=== PATIENT | male | born 1940 | race Caucasian/White ===

== ENCOUNTER 2016-06-26 00:11 | Emergency (ER) | payer MEDICARE, OTHER ==
[~2016-06-26] VITALS: Ht 175.3 cm; Wt 90.9 kg
[2016-06-26 00:13] VITALS: BP 146/76; PULSE 77; RESP 22; O2SAT 93
--- NOTE | 2016-06-26 00:19 | ED.REPORT ---
HPI-Dyspnea / Wheezing Date of Service Jun 26, 2016 ED Provider: Geetha Sun MD 76 year old male with a history of COPD presents to the ER accompanied by family complaining of two days of shortness of breath, worsening today. He also reports shooting right side chest pain exacerbated by movement and deep breaths. Patient denies any mechanism of injury, radiation of pain, abnormal cough, diaphoresis, nausea, vomiting, swelling of the lower extremities, and any recent surgery/travel/immobilization. Symptoms have been treated with acetaminophen/codeine, and Combivent at home. Nursing Notes Stated Complaint: SHORT OF BREATH Chief Complaint: Respiratory Distress Nursing Notes Reviewed: Yes Allergies: Coded Allergies: No Known Allergies (Unverified , 06/26/16) Scheduled Azithromycin (Zithromax) 250 Mg Tablet 250 MG PO DAILY Prednisone (PredniSONE) 20 Mg Tablet 40 MG PO DAILY General Time Seen by MD: 00:17 Chief Complaint Shortness of breath Hx Obtained From: Patient Arrived By: Walk-in Sudden in Onset?: No Onset Occurred: 2 days ago Symptom Duration: Since onset Location: : Chest right Quality: Painful, Sharp, Stabbing Severity: Current: Moderate Severity: Maximum: Moderate Associated with: Denies: Cough, Nausea, Vomiting Pertinent Negative: Pt denies other symptoms Context Related History: Reports: COPD Past Medical History Past Medical History Reports: COPD, Denies: Coronary artery disease, Diabetes mellitus, Hypertension Smoking History Current Every Day Smoker Social History Other Social History: Good social support Ambulatory Status Independent Review of Systems Constitutional: Denies: Chills, Fever Respiratory: Reports: Shortness of breath, Denies: Non-productive cough Cardiovascular: Reports: Chest pain Musculoskeletal: Denies: Extremity pain, Extremity swelling, Neck pain Skin: Denies Diaphoresis Complete sys rev & neg: except as marked. GI: Denies: Nausea, Vomiting Physical Exam Initial Vital Signs Vital Signs (First) Date Time Temp Pulse Resp B/P Pulse Ox O2 Delivery O2 Flow Rate FiO2 06/26/16 00:13 37.2 77 22 146/76 93 Room Air Initial VS: Reviewed Head / Eyes: Atraumatic, Normocephalic, PERRL Abdomen / GI: Soft, Non-tender, No guarding, No rebound, No distention Extremities: Vascular intact, Neuro intact, No swelling, No tenderness Skin: Warm, Dry, No cyanosis Neurologic: Alert, Oriented, Nonfocal General/Constitutional: Awake, Alert, Well developed, Well nourished Neck: Atraumatic, Supple, No meningismus, Full range of motion, No swelling, Non-tender, No masses Diminished Breath Sounds: Positive: Decreased bilateral Wheezing / Retractions: Positive: Wheeze insp/exp diffuse, Wheezing moderate Prolonged expiratory phase. Cardiovascular: Heart rate NL, Regular rhythm, Heart sounds NL, Cap refill not delayed, Peripheral circulation NL, Pulses = bilaterally Interpretation & Diagnostics Lab Results Interpretation Result Diagram: 06/26/16 0025 06/26/16 0025 Test 06/26/16 00:25 White Blood Count 9.9th/mm3 (3.8-10.1) Red Blood Count 4.80mil/mm3 (4.40-5.80) Hemoglobin 15.0g/dL (13.8-17.2) Hematocrit 45.9% (41.0-50.0) Mean Corpuscular Volume 95.6fL (81-100) Mean Corpuscular Hemoglobin 31.3pg (27.0-35.0) Mean Corpuscular Hemoglobin Concent 32.7% (32.0-37.0) Red Cell Distribution Width 13.0% (12.3-15.4) Platelet Count 200bil/L (150-400) Neutrophils (%) (Auto) 68.6% (40-74) Lymphocytes (%) (Auto) 15.2% (14-46) Monocytes (%) (Auto) 13.3% (4-12) Eosinophils (%) (Auto) 2.6% (0-5) Basophils (%) (Auto) 0.1% (0-3) Sodium Level 138mEq/L (134-144) Potassium Level 4.0mEq/L (3.5-5.2) Chloride Level 99mEq/L (97-108) Carbon Dioxide Level 24mmol/L (18-29) Blood Urea Nitrogen 28mg/dL (8-27) Creatinine 0.84mg/dL (0.76-1.27) Estimat Glomerular Filtration Rate 94mL/min (>59) Glucose Level 126mg/dL (60-99) Lactic Acid Level 1.4mmol/L (0.4-2.0) Calcium Level 9.0mg/dL (8.5-10.1) Magnesium Level 2.0mg/dL (1.6-2.6) Total Bilirubin 0.4mg/dL (0.0-1.2) Aspartate Amino Transf (AST/SGOT) 25U/L (0-50) Alanine Aminotransferase (ALT/SGPT) 23U/L (0-44) Alkaline Phosphatase 80U/L (25-160) Troponin T < 0.010ug/L (0.0-0.011) Pro-B-Type Natriuretic Peptide 133.3pg/mL (0-486) Total Protein 6.5g/dL (6.4-8.4) Albumin 3.8g/dL (3.4-5.0) Procalcitonin 0.09ng/mL (0.00-0.08) Hold Child Top Tube Received (Received) ECG Interpretation ECG Interpretation: Sinus rhythm, rate 75 T wave inversion in aVR Flattened T waves in lead 3 and aVL Time: 00:30 Interpreted by: ED physician X-Ray Chest Interpretation Chest Xray Interpretation: Right sided pneumonia. View: AP & lat Interpretation / Wet Read by: Wet read ED physician CT Chest Interpretation IMPRESSION: No evidence for PE. Masslike area of consolidation in the right lower lobe. In the proper clinical setting infection should be considered. Neoplasm is possible and follow-up is recommended to demonstrate resolution. there is a small right pleural effusion. Electronically signed by Pete Solis MD Study type: CT pulm angiogram Interpretation / Wet Read by: Interpret - Radiologist Re-Eval/Medical Decision Med Decision/Clinical Course 76-year-old male with past medical history of COPD and hypertension here with shortness of breath. Differential diagnosis includes but is not limited to pneumonia versus pleural effusion versus PE versus ACS. At this time, I do not feel he has ACS. His initial troponin is negative, the chest pain he has been having his been constant for the last 4 days, and I do not feel he requires admission for ACS rule out. The PE study was negative for PE, however, there is a mass in his right lower lobe which is concerning for pneumonia versus cancer. CBC and CMP were normal. Patient received albuterol inhaler treatments in the emergency department with improvement in his dyspnea. He was also given steroids, Rocephin, and his first dose of azithromycin for community- acquired pneumonia. He was given very strict return precautions, and advised to call his primary care physician tomorrow to set up an appointment for outpatient workup for possible lung mass. He was given prescriptions for prednisone and azithromycin for the rest of his treatment. He is amenable to discharge at this time. Source of Hx: Old records Re-Evaluation/Progress #1: Time of Eval: 01:41 Re-Evaluation/Progress Note: Patient is feeling improved after breathing treatment. Slightly decreased air movement in the bases with scattered rhonchi. Overall improved throughout. Re-Evaluation/Progress #2: Time of Eval: 02:00 Re-Evaluation/Progress Note: Discussed lab and radiology results and plan to discharge with instruction for immediate follow-up. Patient is amenable to the plan. Return precautions given. All other questions addressed. Counseled Regarding: Diagnosis, Lab results, Need for follow-up, When/why to return to ED Discharge & Departure Impression: Primary Impression: Pneumonia Pneumonia type: due to unspecified organism Laterality: right Lung location : lower lobe of lung Qualified Code: J18.1 - Lobar pneumonia, unspecified organism Disposition: Home Discharge Condition All VS Reviewed: Yes Condition: Stable Patient Instructions: Viral Pneumonia (ED) Additional Instructions: Take your Combivent at home every 4 hours for the next 48 hours Take the prescribed azithromycin as directed. It is important that you take the entire course of this antibiotic, even if your symptoms improve. Take prednisone as directed. Call your primary care doctor first thing in the morning to arrange a follow-up appointment as soon as possible to further investigate the abnormal findings on your chest CT. Return to the ER if you develop worsening chest pain, radiation of pain into your neck/arms/shoulders, difficulty breathing, nausea, profuse sweating, swelling of your legs, or any other concerning symptoms. Referrals: Beau Briscoe MD (Family) Scribe Attestation Portions of this note were transcribed by Salomón Delaney. I, Dr. Sun, personally performed the history, physical exam and medical decision-making; I reviewed and confirmed the accuracy of the information in the transcribed note. Signed by: Enriqueta Newby. 06/26/2016 - 02:07 copies to: Beau Briscoe MD, Rebecca A MD Jun 26, 2016 00:19 SALOMÓN DELANEY Jun 26, 2016 00:30
[2016-06-26] MEDS ORDERED: Albuterol 2.5 mg/3 mL Inhalation Solution NEB ONE ×2 (00:26→01:45)
[2016-06-26 00:36] LABS: BASOPHILS % (AUTO) 0.1 % (0-3); EOSINOPHILS % (AUTO) 2.6 % (0-5); MONOCYTES % (AUTO) 13.3 % (4-12); Mean Corpuscular Hemoglobin 31.3 pg (27.0-35.0); Mean Corpuscular Volume 95.6 fL (81-100); NEUTROPHILS % (AUTO) 68.6 % (40-74); Platelet Count 200 bil/L (150-400)
[2016-06-26 00:43] VITALS: PULSE 75; RESP 26; O2SAT 97
[2016-06-26 00:59] LABS: TROPONIN T < 0.010 ug/L (0.0-0.011)
[2016-06-26] MEDS ORDERED: 0.9% Sodium Chloride 500 ML IV ONE (01:15)
[2016-06-26] MEDS ORDERED: cefTRIAXone Inj 1,000 MG in Dextrose 5% Minibag Plus 50 ML IV ONE (01:55)
[2016-06-26 01:57] VITALS: PULSE 68; RESP 30; O2SAT 97
[2016-06-26] MEDS ORDERED: predniSONE 20 mg Tablet PO ONE (02:05)
[2016-06-26] MEDS ORDERED: PRE20 PO (02:26)
[2016-06-26] MEDS ORDERED: ZIT250 PO (02:26)
[2016-06-26 02:51] VITALS: BP 135/70; PULSE 82; RESP 19; O2SAT 91
--- NOTE | 2016-06-26 08:08 | DRSVH ---
PROCEDURE: X-RAY CHEST, TWO VIEWS ([id number]) INDICATIONS: chest pain TECHNIQUE: 2 views of the chest were acquired. COMPARISON: None. FINDINGS: Surgical changes and devices: None. Lungs and pleura: No pneumothorax. A 5.5 cm masslike density is present in the posteromedial right l ower lobe. Small right pleural effusion is suspected. Remainder of lungs clear.. Mediastinum: Mediastinal contours are normal. Heart size is normal. Bones and chest wall: No suspicious bony abnormalities. Old fracture deformity right midclavicle. Bi lateral glenohumeral arthritis. Soft tissues appear unremarkable. IMPRESSION: 1. Masslike density in the right lower lobe could represent round pneumonia but malignant tumor canno t be excluded. CT chest and clinical correlation recommended. 2. A small right pleural effusion is suspected and this may be partially loculated posteriorly Dictated by: Nuno Clarke M.D. on 06/26/2016 at 8:04 Approved by: Nuno Clarke M.D. on 06/26/2016 at 8:07
--- NOTE | 2016-06-26 08:37 | DRSVH ---
PROCEDURE: CT ANGIO CHEST PULMONARY EMBOLISM ([id number]) INDICATIONS: shortness of breath TECHNIQUE: After the administration of intravenous contrast, 2 mm thick sections acquired from the pulmonary api gin to the posterior costophrenic angles. 3-dimensional maximum intensity projection (MIP) coronal a nd sagittal reformats were then acquired through the thorax. For radiation dose reduction, the follo wing was used: automated exposure control, adjustment of mA and/or kV according to patient size. COMPARISON: [facility], CR, XR CHEST 2VW, 06/26/2016, 0:33. FINDINGS: Image quality: Excellent. Pulmonary arteries: Pulmonary arteries are normal in size, and demonstrate no intraluminal filling d efects to suggest central pulmonary embolism. Lungs and pleura: There is a 5.2 x 6.3 cm lobulated mass in the right lower lobe concerning for prima ry neoplasm. There is narrowing of the right lower lobe basal segmental bronchi. There is a small ri ght effusion. No pneumothorax. Mediastinum: There is a 1.4 cm right hilar lymph node. A mildly enlarged subcarinal lymph node measu res 1.5 x 1.6 cm. Heart size is normal, without pericardial effusion. Thoracic aorta is normal in caliber and enhancem ent. Esophagus is normal in caliber, without hiatal hernia. Bones and chest wall: No suspicious bony lesions. Ribs and thoracic spine appear intact throughout. Left thyroid lobe is absent. There is a calcified nodule in the right thyroid lobe. No axillary or supraclavicular adenopathy. Abdomen: Visualized upper abdominal solid organs appear normal in the early arterial phase of enhanc ement. IMPRESSION: 1. No evidence for central pulmonary embolism. 2. A 5.2 x 6.3 cm lobulated mass in the right lower lobe suspicious of primary lung cancer. If clinic ally indicated, a PET CT may be helpful for further evaluation. 3. Small right pleural effusion. 4. Mild mediastinal and right hilar lymphadenopathy suspicious for metastasis. The result was discussed with Dr. Gloria prior to dictation. Dictated by: Dov Brooks M.D. on 06/26/2016 at 8:24 Approved by: Dov Brooks M.D. on 06/26/2016 at 8:36
[2016-09-07] MEDS ORDERED: ASPI-973 PO (13:12)
[2016-09-07] MEDS ORDERED: LOPE-147 PO (13:12)
[2016-09-07] MEDS ORDERED: CHOL200047 PO (13:12)
[2016-09-07] MEDS ORDERED: PANT40TA3 PO (13:12)
[2016-09-07] MEDS ORDERED: ACET325T51 PO (13:12)
[2016-09-07] MEDS ORDERED: ADV100INH IH (13:12)
[2016-09-07] MEDS ORDERED: IPRA4AER IH (13:12)
[2016-09-07] MEDS ORDERED: OMEP20CA11 PO (13:12)
[2016-09-07] MEDS ORDERED: ATRV10T PO (13:12)
[2016-09-07] MEDS ORDERED: CLOP75TA28 PO (13:12)
[2016-09-07] MEDS ORDERED: ACET1TAB12 PO (13:13)
== END 2016-06-26 02:51 | disposition home or self-care (01) ==
LOC: SED 00:11
DX: J18.1 Lobar pneumonia, unspecified organism (principal); J44.9 Chronic obstructive pulmonary disease, unspecified; F17.200 Nicotine dependence, unspecified, uncomplicated
CPT/HCPCS: 71020; 71275; 80053; 83605; 83735; 83880; 84145; 84484; 85025; 87040; 93005; 94644; 96361; 96365; 99285; J0696; J7040; Q9967

== ENCOUNTER → 2016-11-10 | Day surgery (SDC) | payer MEDICARE, OTHER ==
[~2016-11-10] VITALS: Ht 172.7 cm; Wt 89.5 kg
[2016-11-10] VITALS (10 sets, daily range): BP systolic 124–146; BP diastolic 70–80; PULSE 66–107; RESP 16–23; O2SAT 95–100
[~2016-11-10] MED LIST: ACET1TAB12 PO; ACET325T51 PO; ADV100INH IH; ASPI-973 PO; ASPI325T32 PO; ATRV10T PO; AZIT250T4 PO; Albuterol-Ipratropium 3 mL Inhalation Solution NEB ONE; Albuterol-Ipratropium 3 mL Inhalation Solution ONE; Bupivacaine-MPF 0.5% 30 mL Inj INFILTRATE ONE; CHOL200047 PO; CLOP75TA28 PO; CeFAZolin 2 Gm/50 mL D5W IV Premix IV ONE; Dexamethasone 4 mg/mL Inj IVPUSH PRN; EPHEDrine Sulfate 50 mg/mL Inj IVPUSH PRN; Glycopyrrolate 0.2 MG/ML 1mL Inj ONE; HYDROmorphone 1 mg/mL Inj IVPUSH PRN; HepLOK Flush 100 unit/mL 5 mL Inj IVFLUSH ONE; IPRA4AER IH; LOPE-147 PO; Lactated Ringer's 1,000 ML IV SCH; Lactated Ringer's 500 ML IV PRN; Neostigmine 1 mg/mL 10 mL Inj ONE; OMEP20CA11 PO; OXYC-466 PO; Ondansetron 2 mg/mL 2 mL Inj IVPUSH PRN; Ondansetron 2 mg/mL 2 mL Inj ONE; PANT40TA3 PO; Phenylephrine 10,000 mCg/mL Inj IVPUSH PRN; Propofol 10,000 mCg/mL 20 mL Inj ONE; Rocuronium 10 mg/mL 5 mL Inj ONE; fentaNYL-PF 50 mCg/mL 2 mL Inj IVPUSH PRN; fentaNYL-PF 50 mCg/mL 2 mL Inj ONE; magic mouthwash PO; oxyCODONE-Acetamin 5-325 mg Tablet PO PRN
[2016-11-10] MEDS: Lactated Ringer's 1,000 ML IV SCH ×2 (06:05→09:36)
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
--- NOTE | 2016-11-10 10:52 | PCM.DISURG ---
Surgical Discharge Instruction Date of Service Nov 10, 2016 Dates of Hospitalization Date of Hospital Admission Providers Admitting Physician: Primary Care Physician: Beau Vallejo MD Attending Physician: Tiny Harris MD Diet Discharge Diet: No restrictions Activity Discharge Activity-General: Be up and about, Activity as pain allows, No driving while taking narcotic Dressing and Incisional Care Dressing Care: Allow Steri Stripes to fall off, Remove outer dressing after 24 hrs Hygiene: May shower after (24 hours), DO NOT soak incision under water, NO bathtub, hot tub or whirlpool Follow Up Plan Call your provider for: Fever, Chills, Wound redness, Discharge @ incision, pus discharge Loy Domínguez MD Nov 10, 2016 10:52
--- NOTE | 2016-11-10 11:10 | OP ---
[address] [address] OPERATIVE REPORT PATIENT: MECHE EASON : 1940 MR#: [id number] ADMIT: 11/10/2016 JOB ID: [id number] DATE OF SURGERY: 11/10/2016 SURGEON: Tiny Harris M.D. PREOPERATIVE DIAGNOSIS(ES): Metastatic lung cancer. POSTOPERATIVE DIAGNOSIS(ES): Metastatic lung cancer. PROCEDURE PERFORMED: Left subclavian tunneled central venous catheter with subcutaneous port placement with intraoperative fluoroscopy and interpretation. INDICATIONS: The patient is a 76-year-old gentleman who presented to our emergency department on June 26, 2016, with shortness of breath and chest pain. 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 He started on chemotherapy and radiation with Taxol along with carboplatin. He has had problems with IV access prompting Dr. Galaviz to consult me for tunneled subcu venous catheter with subcutaneous port placement. PROCEDURE DETAILS: He was placed in a supine position. Underwent smooth induction of general anesthesia, and the neck and chest were prepped and draped in the usual sterile fashion. Surgical time-out was undertaken using safety checklist, and all were in agreement. I began by placing him in steep Trendelenburg position and accessed the left subclavian vein using Seldinger technique, and confirmed placement using fluoroscopy. We measured the length of wire to determine the required length of the catheter and proceeded to make a pocket over the left pectoralis and sutured the port with a 2-0 PDS suture on either side. After that we cut the catheter to the required length and attached to the port and dilated the wire using introducer dilator. After that, we advanced the catheter through the introducer sheath after removing the dilator and wire and removed the tear away sheath while keeping the catheter in position. We then placed the port within the pocket and aspirated and flushed to make sure it is working well and locked it with heparin. After confirming the final position of the catheter and the port to be in a satisfactory location, we tied our PDS sutures down and closed the wound in layers of 4-0 Monocryl. Steri-Strips and sterile dressing were applied. The patient was recovered from anesthesia and was taken to the recovery room in stable condition.
--- NOTE | 2016-11-10 11:11 | DRSVH ---
PROCEDURE: X-RAY CHEST ONE VIEW, PORTABLE ([id number]) INDICATIONS: S/p left subclavian port, r/o PTX TECHNIQUE: One view of the chest was acquired. COMPARISON: [facility], CR, XR CHEST 1VW, 07/27/2016, 14:36. [facility], CR, XR PICC L INE PLACE BY NURSE, 10/09/2016, 10:14. [facility], CT, CT CHEST W CON, 09/15/2016, 10:15. FINDINGS: Surgical changes and devices: A left-sided central line catheter is identified with the tip overlying the superior vena cava. Lungs and pleura: No new consolidation, effusion, or pneumothorax is evident. Patient's right midlun g mass is not readily apparent. There are subtle areas of increased density within the right mid svetlana g, similar to prior exams. There may be mild scarring at the left lung base. Mediastinum: Mediastinal contours appear normal. Heart size is normal. There is aortic atheroscler osis. Bones and chest wall: No suspicious bony lesions. Overlying soft tissues appear unremarkable. IMPRESSION: 1. Left-sided central line catheter is positioned with the tip overlying the superior vena cava. 2. No pneumothorax. 3. No acute cardiopulmonary process is suspected. Dictated by: Joe Fuentes M.D. on 11/10/2016 at 10:07 Approved by: Joe Fuentes M.D. on 11/10/2016 at 10:09
--- NOTE | 2016-11-10 12:51 | PCM.ANEP1 ---
Post Anesthesia PACU Phase 1 Assessment Vital Signs Vital Signs Date Time Temp Pulse Resp B/P Pulse Ox O2 Delivery O2 Flow Rate FiO2 11/10/16 12:49 66 18 130/75 96 Room Air 11/10/16 11:15 36.4 68 129/75 95 Room Air 11/10/16 11:10 66 21 134/70 97 Room Air 11/10/16 11:05 72 21 125/80 97 Room Air 11/10/16 11:00 36.4 83 21 144/80 97 Room Air 11/10/16 10:55 84 23 144/80 100 Simple Mask 8 11/10/16 10:50 107 21 140/80 100 Simple Mask 8 11/10/16 10:45 36.4 107 21 146/77 100 Simple Mask 8 11/10/16 06:45 36.0 80 16 124/74 98 Room Air 11/10/16 06:45 CPAP/BIPAP 11/10/16 06:22 36.0 80 16 124/74 98 Room Air Anesthetic Administered: GA Level of Alertness: Awake, talking Pain: No Nausea or Vomiting: No CV Function & Hydration Stable: Yes Airway Device: None Oxygen Delivery: Room Air Lungs: Wheezes PACU Phase 2 Assessment Complications: No Follow up Care: N/A Patient Instructions Provided: N/A Esteban Mandujano MD Nov 10, 2016 12:51
== END | disposition home or self-care (01) ==
LOC: SAS 06:02
PROVIDERS: ATTEND Student in an Organized Health Care Education/Training Program
DX: C34.31 Malignant neoplasm of lower lobe, right bronchus or lung (principal); C79.9 Secondary malignant neoplasm of unspecified site; I77.9 Disorder of arteries and arterioles, unspecified; J44.9 Chronic obstructive pulmonary disease, unspecified; G47.33 Obstructive sleep apnea (adult) (pediatric); G25.81 Restless legs syndrome
CPT/HCPCS: 36561; 71010; 77001; C1788; J0690; J1642; J2405; J2704; J2710; J3010; J7120; J7620

== ENCOUNTER 2016-11-12 09:28 | Emergency (ER) | payer MEDICARE, OTHER ==
[~2016-11-12] VITALS: Ht 172.7 cm; Wt 90.9 kg
[~2016-11-12 09:28] MED LIST changes: -ASPI-973 PO; -AZIT250T4 PO; -Albuterol-Ipratropium 3 mL Inhalation Solution NEB ONE; -Albuterol-Ipratropium 3 mL Inhalation Solution ONE; -Bupivacaine-MPF 0.5% 30 mL Inj INFILTRATE ONE; -CeFAZolin 2 Gm/50 mL D5W IV Premix IV ONE; -Dexamethasone 4 mg/mL Inj IVPUSH PRN; -EPHEDrine Sulfate 50 mg/mL Inj IVPUSH PRN; -Glycopyrrolate 0.2 MG/ML 1mL Inj ONE; -HYDROmorphone 1 mg/mL Inj IVPUSH PRN; -HepLOK Flush 100 unit/mL 5 mL Inj IVFLUSH ONE; -Lactated Ringer's 1,000 ML IV SCH; -Lactated Ringer's 500 ML IV PRN; -Neostigmine 1 mg/mL 10 mL Inj ONE; -Ondansetron 2 mg/mL 2 mL Inj IVPUSH PRN; -Ondansetron 2 mg/mL 2 mL Inj ONE; -Phenylephrine 10,000 mCg/mL Inj IVPUSH PRN; -Propofol 10,000 mCg/mL 20 mL Inj ONE; -Rocuronium 10 mg/mL 5 mL Inj ONE; -fentaNYL-PF 50 mCg/mL 2 mL Inj IVPUSH PRN; -fentaNYL-PF 50 mCg/mL 2 mL Inj ONE; -oxyCODONE-Acetamin 5-325 mg Tablet PO PRN
[2016-11-12 09:30] VITALS: BP 126/72; PULSE 88; RESP 18; O2SAT 94
[2016-11-12] MEDS ORDERED: Lidocaine 2%-Epi 1:100,000 20 mL Inj SUBQ ONE (09:40)
--- NOTE | 2016-11-12 09:40 | ED.REPORT ---
HPI-Chest Pain 40 and Over Date of Service Nov 12, 2016 ED Provider: Ivan Dobbins MD Pt is a 76 year old male with a history of COPD, port placement, chronic cough, hypotension, iliac stents, and metastatic lung cancer who presents to the ED complaining of right sided chest pain onset yesterday. He c/o SOB secondary to the pain. He denies fever, diaphoresis, lower extremity swelling, and chills. The pt presented to Urgent Care with his symptoms and he was referred to the ED for further evaluation. He presents with a port on the left side of his chest that was placed 3 days ago. Pt reports that he has experienced similar symptoms when he was diagnosed with pneumonia. He states that his pain is severe. Pt has taken oxycodone today without relief. Per pt, he is taking Plavix and he has taken it today. Nursing Notes Stated Complaint: CHEST PAIN Chief Complaint: Chest Pain Nursing Notes Reviewed: Yes (Sennari, meds not reconciled) Allergies: Coded Allergies: No Known Allergies (Unverified , 11/06/16) Scheduled ([magic mouthwash]) 1 CUPLQ PO BID Albuterol/Ipratropium (Combivent Respimat Inhal Carson) 120 Spr/4 Gm Inhaler 1 PUFF IH QID Atorvastatin (Lipitor) 10 Mg Tab 10 MG PO DAILY Azithromycin (Zithromax (Z-Hamzah)) 250 Mg Tablet 250 MG PO DIRECTED Take two tablets by mouth on day 1, then take one tablet daily on days 2 through 5. Cholecalciferol (Vitamin D3) (Vitamin D3) 2,000 Unit Capsule 2,000 UNIT PO DAILY Clopidogrel (Clopidogrel) 75 Mg Tablet 75 MG PO DAILY Fluticasone/Salmeterol (Advair 100-50 Diskus) 60 Puffs/Inh Disk 1 PUFFS IH BID Omeprazole (Omeprazole) 20 Mg Capsule.dr 20 MG PO DAILY Pantoprazole (Pantoprazole DR) 40 Mg Tablet.dr 40 MG PO DAILY Scheduled PRN Acetaminophen (Acetaminophen) 325 Mg Tablet 325 MG PO Q4H PRN PRN For Fever Acetaminophen/Codeine 300-30mg (Tylenol/Codeine #3) 1 Each Tablet 1 TABLET PO Q4H PRN PRN Pain Loperamide HCl (Imodium A-D) 2 Mg Capsule 2 MG PO DAILY PRN PRN For Diarrhea or Loose Stool oxyCODONE-Acetaminophen 10-325 mg (oxyCODONE-Acetaminophen 10-325 mg) 1 Each Tablet 1 TABLET PO Q4H PRN PRN For Pain Miscellaneous Medications Aspirin (Aspirin) 325 Mg Tablet 325 MG PO General Time Seen by MD: 09:37 Chief Complaint Chest pain Hx Obtained From: Patient Arrived By: Walk-in Sudden in Onset?: No Onset Occurred: Yesterday Symptom Duration: Since onset Location: : Chest right Quality: Painful Radiation: : Does not radiate Migration/Movement: Reports: None Severity: Current: Severe Severity: Maximum: Severe Recent Healthcare: Recent doctor visit Similar Sx Previous: Yes Past Medical History Past Medical History 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, Stage IV (T2b, N2, M1 per oncology note), 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 History of hypotension History of upper GI bleed History of peripheral vascular disease Obstructive sleep apnea History of osteoarthritis Restless leg syndrome Chronic cough Reports: COPD, Hyperlipidemia Past Surgical History Port placement Iliac stents Upper GI endoscopy in 2013 Reports: Cataract surgery Smoking History Current Every Day Smoker Social History Retired plain clothes police officer, lives on [place] Alcohol Use: Denies alcohol use Drug Use: Denies drug use Other Social History: Good social support, (w) Ambulatory Status Independent Review of Systems Constitutional: Denies: Chills, Fever Respiratory: Reports: Shortness of breath (secondary to the pain) Cardiovascular: Reports: Chest pain Musculoskeletal: Denies: Extremity swelling Skin: Denies Diaphoresis Complete sys rev & neg: except as marked. Physical Exam Initial Vital Signs Vital Signs (First) Date Time Temp Pulse Resp B/P Pulse Ox O2 Delivery O2 Flow Rate FiO2 11/12/16 09:30 36.0 88 18 126/72 94 11/12/16 11:55 Room Air Initial VS: Reviewed, Vital signs normal Head / Eyes: Atraumatic, Normocephalic Neck: Supple, Full range of motion Extremities: Vascular intact, Neuro intact Skin: Warm, Dry, No cyanosis Neurologic: Alert, Oriented, Nonfocal Psychiatric: Mood/affect normal, Behavior normal General/Constitutional: Awake, Alert Respiratory / Chest: Breath sounds NL, Breath sounds = bilat He has mild pain intermittently with taking a deep breath. He has a ported cath. Cardiovascular: Heart rate NL, Regular rhythm, Heart sounds NL Abdomen: Atraumatic, Soft, Non-tender Interpretation & Diagnostics CT ANGIO CHEST PULMONARY EMBOLISM IMPRESSION: 1. No pulmonary emboli. 2. Bronchial wall thickening within the infrahilar regions may be exaggerated by shallow inspiration. Please correlate clinically to exclude bronchitis. 3. Right lower lobe mass has decreased in size. No new masses. Lymph nodes also have decreased in the interim. 4. No consolidating pneumonia, effusion, or pneumothorax. Dictated by: Joe Fuentes M.D. on 11/12/2016 at 10:59 Lab Results Interpretation Result Diagram: 11/12/16 1010 11/12/16 1010 Test 11/12/16 10:10 White Blood Count 3.2th/mm3 (3.8-10.1) Red Blood Count 3.96mil/mm3 (4.40-5.80) Hemoglobin 12.7g/dL (13.8-17.2) Hematocrit 38.3% (41.0-50.0) Mean Corpuscular Volume 96.7fL (81-100) Mean Corpuscular Hemoglobin 32.1pg (27.0-35.0) Mean Corpuscular Hemoglobin Concent 33.2% (32.0-37.0) Red Cell Distribution Width 16.0% (12.3-15.4) Platelet Count 118bil/L (150-400) Neutrophils (%) (Auto) 81.3% (40-74) Lymphocytes (%) (Auto) 5.0% (14-46) Monocytes (%) (Auto) 13.1% (4-12) Eosinophils (%) (Auto) 0.3% (0-5) Basophils (%) (Auto) 0% (0-3) D-Dimer 1.59mg/L FEU (<0.50) Sodium Level 139mEq/L (134-144) Potassium Level 4.3mEq/L (3.5-5.2) Chloride Level 104mEq/L (97-108) Carbon Dioxide Level 22mmol/L (18-29) Blood Urea Nitrogen 26mg/dL (8-27) Creatinine 0.76mg/dL (0.76-1.27) Estimat Glomerular Filtration Rate 105mL/min (>59) Glucose Level 95mg/dL (60-99) Calcium Level 8.5mg/dL (8.5-10.1) Magnesium Level 2.3mg/dL (1.6-2.6) Total Bilirubin 0.9mg/dL (0.0-1.2) Aspartate Amino Transf (AST/SGOT) 19U/L (0-50) Alanine Aminotransferase (ALT/SGPT) 18U/L (0-44) Alkaline Phosphatase 67U/L (25-160) Troponin T 0.010ug/L (0.0-0.011) Total Protein 6.1g/dL (6.4-8.4) Albumin 3.7g/dL (3.4-5.0) Hold Child Top Tube Received (Received) Lab Results Interpretation: CBC mild leukopenia, not neutropenic CMP normal D-dimer elevated Troponin negative Blood cultures 2 pending ECG Interpretation ECG Interpretation: Occasional PVC No acute ischemia No interval change compared [facility] 06/26/2016 Time: 09:51 Interpreted by: ED physician Normal ECG Interpretation: Normal sinus rhythm (with a rate of 87) X-Ray Chest Interpretation Chest Xray Interpretation: IMPRESSION: Bibasilar atelectasis. Dictated by: Dov Brooks M.D. on 11/12/2016 at 10:10 View: Portable, 1 view Interpretation / Wet Read by: Interpret - Radiologist Re-Eval/Medical Decision Med Decision/Clinical Course This is a pleasant 76-year-old male recently diagnosed with metastatic lung CA who had a Port-A-Cath placed on the left side in recent days, and is getting chemotherapy and radiation therapy presents with a worsening right-sided pleuritic discomfort and a concern that he may be developing pneumonia. The patient states he has had symptoms like this before, and is usually responded to antibiotic therapy. However he has not had a fever, sweats or chills, he has a chronic cough and reports it has not really changed, but reports moderate pleuritic discomfort. On exam he does appear intermittent and call for deep inspiration, but is not in any distress. He is not hypoxic or febrile or hypotensive. His lung sounds are clear, his abdomen soft nontender, and he has no overt findings suggestive of DVT on clinical physical exam. In one workup that includes a chest x-ray, although it is fairly unremarkable and the cancer is not visible-there is also no overt pneumonia or pneumothorax or other pathology identified. Labs were obtained which revealed no leukocytosis, but a d-dimer was indeed elevated, and given the setting a CT angiogram was obtained. This was negative for PE, and overt pneumonia was not identified, and the lung masses x-ray smaller. It is on the periphery near the pleura and might explain some of the symptoms. The patient feels better and would like to go home, he got this result. The cultures were drawn given the patient states this is similar when he has had with pneumonia as-and I discussed options, the patient would like to be treated empirically, and I do not think that is unreasonable as a postobstructive pneumonia still possible. The patient is being treated with azithromycin. He will continue his oxycodone for pain control and I recommended a short course of some ibuprofen as well. She return precautions are reviewed. Patient's discharged clinical well- appearing and in no acute distress. Source of Hx: Old records Time of Eval: 12:20 Re-Evaluation/Progress Note: Pt rechecked. Informed pt of plan for discharge. Pt understands and agrees with plan for discharge. F/U instructions and RTER warnings given. All questions addressed. Differential Diagnosis: Positive: Chest pain, acute, Negative: Acute coronary syndrome, Acute myocardial infarct, Asthma exacerbation, Cholecystitis, Cholelithiasis, Congestive heart failure, Dysrhythmia, Esophageal rupture, Gun shot wound chest, Hypertroph cardiomyopathy , Pneumomediastinum, Pneumonia, Pneumothorax, Pulmonary edema, Pulmonary embolism, Rib fracture, Stab wound chest Counseled Regarding: Diagnosis, Lab results, Need for follow-up, When/why to return to ED Discharge & Departure Primary Impression: Pleuritic chest pain Additional Impression: Lung cancer Laterality: right Lung location: lower lobe of lung Qualified Code: C34.31 - Malignant neoplasm of lower lobe, right bronchus or lung Disposition: Home Discharge Condition All VS Reviewed: Yes Condition: Stable Additional Instructions: 1. A dangerous cause of the pleuritic chest pain was not identified. 2. We did not identify a clear-cut pneumonia, although with nursing this is similar to what she been treated with for pneumonia in the past, I think it is reasonable to treat with antibiotics-take azithromycin 500 mg daily, then 250 mg once a day for 4 more days. 3. The cancer appears smaller on today's images. 4. 10 you your oxycodone. I do recommend taking ibuprofen 400 mg 3 times a day with food for the next few days as this often markedly improves pleuritic chest pain as well. 5. If he developed new or worsening symptoms, return to the emergency department Referrals: Beau Vallejo MD (PCP) Scribe Attestation Portions of this note were transcribed by Shayy Cali. I, Dr. Dobbins personally performed the history, physical exam and medical decision-making; I reviewed and confirmed the accuracy of the information in the transcribed note. Signed by: Enriqueta Orta, 11/12/16. copies to: Beau Vallejo MD, Matthew F MD Nov 12, 2016 09:40 Shayy Hess Nov 12, 2016 09:43
[2016-11-12] MEDS ORDERED: Ketorolac 15 mg/mL Inj IVPUSH ONE (10:00)
[2016-11-12] MEDS ORDERED: HYDROmorphone 0.5 mg/0.5 mL iSecure Syringe IVPUSH PRN (10:00)
[2016-11-12] MEDS ORDERED: Ondansetron 2 mg/mL 2 mL Inj IVPUSH ONE (10:00)
--- NOTE | 2016-11-12 10:14 | DRSVH ---
PROCEDURE: X-RAY CHEST ONE VIEW, PORTABLE ([id number]) INDICATIONS: CHEST PAIN TECHNIQUE: One view of the chest was acquired. COMPARISON: [facility], CR, XR CHEST 1VW (PORTABLE), 11/10/2016, 10:54. FINDINGS: Surgical changes and devices: Left central line port again noted with the tip in the area of SVC. Lungs and pleura: Bibasilar atelectasis. No pleural effusions or pneumothorax. Lungs are clear. Mediastinum: Mediastinal contours appear normal. Heart size is normal. Bones and chest wall: No suspicious bony lesions. Overlying soft tissues appear unremarkable. IMPRESSION: Bibasilar atelectasis. Dictated by: Dov Brooks M.D. on 11/12/2016 at 10:10 Approved by: Dov Brooks M.D. on 11/12/2016 at 10:12
[2016-11-12 10:31] LABS: BASOPHILS % (AUTO) 0 % (0-3); EOSINOPHILS % (AUTO) 0.3 % (0-5); MONOCYTES % (AUTO) 13.1 % (4-12); Mean Corpuscular Hemoglobin 32.1 pg (27.0-35.0); Mean Corpuscular Volume 96.7 fL (81-100); NEUTROPHILS % (AUTO) 81.3 % (40-74); Platelet Count 118 bil/L (150-400)
[2016-11-12 10:51] LABS: TROPONIN T 0.01 ug/L (0.0-0.011)
[2016-11-12 11:02] LABS: Magnesium 2.3 mg/dL (1.6-2.6)
[2016-11-12 11:55] VITALS: BP 135/64; PULSE 82; RESP 15; O2SAT 98
--- NOTE | 2016-11-12 12:12 | DRSVH ---
PROCEDURE: CT ANGIO CHEST PULMONARY EMBOLISM ([id number]) INDICATIONS: Pleuritic CP, lung CA, dimer + TECHNIQUE: After the administration of intravenous contrast, 2 mm thick sections acquired from the pulmonary api gin to the posterior costophrenic angles. 3-dimensional maximum intensity projection (MIP) coronal a nd sagittal reformats were then acquired through the thorax. For radiation dose reduction, the follo wing was used: automated exposure control, adjustment of mA and/or kV according to patient size. COMPARISON: [facility], CT, CT CHEST W CON, 09/15/2016, 10:15. [facility], C T, CT ANGIO CHEST PE, 06/26/2016, 1:31. FINDINGS: Image quality: Diagnostic. Pulmonary arteries: Pulmonary arteries are normal in size, and demonstrate no intraluminal filling d efects to suggest central pulmonary embolism. Placement of the pulmonary arteries within the right l ower lobe mass themselves are not adequately seen, related to extrinsic mass effect. Lungs and pleura: The aeration of the lungs is similar to the previous exam from 09/15/16 with a promi nent mass within the right lower lobe. This mass is smaller in size and measures approximately 3.8 x 4.3 x 4.0 cm (image 34, series 7 and image 32, series 6), previously measuring 5.3 x 6.4 x 5.8 cm wh en remeasured in a similar configuration. Associated adjacent atelectasis is noted. There is mild s carring versus atelectasis within the region of the lingula and posterior left costophrenic angle. N o new areas of consolidation are identified. Prominence of the bronchial le is seen within the bi lateral lower lobes. There is no significant pleural effusion or pneumothorax. Mediastinum: Heart size is normal, without pericardial effusion. No mediastinal or hilar adenopathy . The size of the mediastinal and hilar lymph nodes have significantly decreased. For example, the prominent subcarinal lymph node measures approximately 11 x 10 mm on the current study, previously me asuring approximately 20 x 32 mm. Thoracic aorta is normal in caliber and enhancement. Esophagus is normal in caliber, without hiatal hernia. Left-sided Port-A-Cath central line is identified with th e tip overlying the right atrium. There is aortic and coronary artery atherosclerosis. Bones and chest wall: No suspicious bony lesions. Ribs and thoracic spine appear intact throughout. Multifocal degenerative changes of the spine are present. Enlargement of the right thyroid lobe is evident with multiple nodules, which are at least partly calcified. No axillary or supraclavicular adenopathy. Abdomen: Visualized upper abdominal solid organs appear normal in the early arterial phase of enhanc ement. IMPRESSION: 1. No pulmonary emboli. 2. Bronchial wall thickening within the infrahilar regions may be exaggerated by shallow inspiration . Please correlate clinically to exclude bronchitis. 3. Right lower lobe mass has decreased in size. No new masses. Lymph nodes also have decreased in the interim. 4. No consolidating pneumonia, effusion, or pneumothorax. Dictated by: Joe Fuentes M.D. on 11/12/2016 at 10:59 Approved by: Joe Fuentes M.D. on 11/12/2016 at 11:10
[2016-11-12] MEDS ORDERED: AZIT250T4 PO (12:31)
[2016-11-12 12:45] VITALS: BP 125/67; PULSE 76; RESP 18; O2SAT 94
== END 2016-11-12 12:47 | disposition home or self-care (01) ==
LOC: SED 09:28
DX: R07.81 Pleurodynia (principal); C34.31 Malignant neoplasm of lower lobe, right bronchus or lung; J44.9 Chronic obstructive pulmonary disease, unspecified; E78.5 Hyperlipidemia, unspecified; F17.200 Nicotine dependence, unspecified, uncomplicated; Z87.01 Personal history of pneumonia (recurrent); Z92.21 Personal history of antineoplastic chemotherapy
CPT/HCPCS: 36415; 71010; 71275; 80053; 82948; 83735; 84484; 85025; 85378; 87040; 93005; 96374; 96375; 99285; J1170; J1885; J2405; Q9967